=== PATIENT | female | born 1985 | race Caucasian/White ===

== ENCOUNTER 2016-06-09 11:44 | Emergency (ER) | payer MEDICAID ==
--- NOTE | 2016-06-09 12:36 | EDPRACDOC ---
- General Information Stated Complaint: COUGH/CONGESTION Time Seen by Provider: 06/09/16 12:12 Information Source: Patient Home Medications: Home Medications Azithromycin [Zithromax] 0 mg PO DAILY #6 tablet 06/09/16 Fluticasone Propionate [Flonase Nasal [place]] 2 spray ANTONELLA DAILY #1 each 06/09/16 Prednisone [Sterapred Ds] 10 mg PO DIR #21 pack 06/09/16 Allergies/Adverse Reactions: Allergies Allergy/AdvReac Type Severity Reaction Status Date / Time amoxicillin Allergy Hives* Verified 06/09/16 12:34 Penicillins Allergy Hives* Verified 06/09/16 12:34 - History of Present Illness Symptoms Started: 2 WKS HPI: PT C/O COUGH CONGESTION NASAL CONGESTION FOR 2 WKS. Symptoms: Reports: Cough, Nasal Symptoms Recent Medications: Reports: None Relevant History Of: Reports: None Shortness of Breath: Mild Cough Frequency: Intermittent Cough Description: Reports: Non-productive, Congested Rhinorrhea: Reports: Clear Ear Symptoms: Reports: None Associated Signs and Symptoms: Reports: Cough, Nasal Symptoms ED Past Medical History - History Reviewed Yes Nurses notes reviewed and agree except as marked Travel Outside of [place] in the Last 3 Months?: No No Past Medical History: Yes Patient has no past medical history - Social Medical History Smoking Status: Former smoker (QUIT 2-3 WEEKS AGO) ETOH: None Substance Abuse: None Lives With: Other Lives In: Home EDM Review of Systems - Review of Systems ROS Negative Except as Marked: Yes All systems reviewed and were negative except as marked Constitutional: No Symptoms Reported. negative: Fever, Chills, Weakness, Fatigue, Loss of Appetite Eyes: No Symptoms Reported. negative: Redness, Blurred Vision, Double Vision, Discharge, Pain, Light Sensitive, Photophobia Ears: No Symptoms Reported. negative: Pain, Hearing Loss, Drainage, Ear Pulling Throat: No Symptoms Reported. negative: Pain, Swelling Nose: Congestion. negative: Abrasion, Bleeding, Discharge, Deformity, Ecchymosis, Injection, Laceration, Swelling, Tender Mouth: No Symptoms Reported. negative: Pain, Drooling Respiratory: Cough. negative: Barky Cough, Brassy Cough, Hemoptysis, Shortness of Breath, Wheezing Cardiovascular: No Symptoms Reported. negative: Chest Pain, Palpitations, Syncope, Edema, Orthopnea, PND, Skin Mottling, Cyanosis Gastrointestinal: No Symptoms Reported. negative: Pain, Constipation, Nausea, Vomiting, Diarrhea, Melena, Formula Intolerance Genitourinary: No Symptoms Reported. negative: Dysuria, Hematuria, Frequency, Discharge, Bleeding, Testicular Pain, Neurological: No Symptoms Reported. negative: Headache, Dizziness, Seizure, Numbness, Weakness, Speech Difficulty, Gait Difficulty Musculoskeletal: No Symptoms Reported. negative: Neck, Chestwall, Ribs, Back, Shoulder, Arm, Elbow, Forearm, Wrist, Hand, Pelvis, Hip, Femur, Knee, Leg, Ankle , Foot Integumentary: No Symptoms Reported. negative: Itching, Rash, Bruising, Wound Allergic/Immunologic: No Symptoms Reported. negative: Hives, Itching Hematologic: No Symptoms Reported. negative: Lymphadenopathy, Easy Bruising, Easy Bleeding Endocrine: No Symptoms Reported. negative: Weight Gain, Weight Loss Psychiatric: No Symptoms Reported. negative: Anxiety, Depression, Hallucinations, Insomnia, Suicidal - Physical Exam Constitutional: No apparent distress, Alert (Awake) Oriented to: Time, Person, Place Last recorded Vital Signs: Oxygen Pulse Oxygen Saturation O2 Device Oxygen Flow Rate Fraction of Inspired Oxygen ( FIO2) - HEENT Head: Normal ( normocephalic) Eye Exam: Normal (PERRL, EOMI, Sclera white) Oropharynx: Normal (Pharynx:Moist without exudate,Gums-no swelling) Tympanic Membrane: Normal ENT EAC: Normal TMJ: Normal Nose: Congestion, Discharge Neck: Normal (FROM, trachea at midline) - Respiratory/Cardiovascular Respiratory: Diminished, Other (COARSE BILATERAL) Cardiovascular: Normal (RRR without murmur, gallop or rub) - GI Auscultation: Normal (NABS) Palpation: Normal (Soft,No rebound or guarding, non distended) Tenderness: Non tender Quispe's Sign: Negative - Musculoskeletal Back: Normal (Non-Tender) Extremities: Normal (Normal tone, Pulses 2+ No cyanosis or edema, FROM) - Integumentary Skin: Normal, Warm, Dry Lymphatics: Normal (no adenopathy) - Neurologic Memory Impaired: Normal Motor Function: Normal (Normal tone, Pulses 2+ No cyanosis or edema, FROM) Cranial Nerve: Normal (CN II-X11 intact sensation, strength 5/5) Cerebellar: Normal Mood Description: Normal Perception: Normal - Differential Diagnosis Allergic Rhinitis, Bronchitis, Sinusitis Decision Time to Discharge: 12:37 - Departure Disposition: Home Condition: Stable Final Diagnosis: Acute bronchitis, Acute sinusitis Instructions: Acute Bronchitis (ED), Sinusitis (ED) Education/Counseling Given To: Patient Education/Counseling Given Regarding: Diagnosis, Treatment, Prognosis, Follow Up Referrals: None,No Provider [Primary Care Provider] - One Week Prescriptions: Azithromycin [Zithromax] 0 mg PO DAILY #6 tablet Fluticasone Propionate [Flonase Nasal [place]] 2 spray ANTONELLA DAILY #1 each Prednisone [Sterapred Ds] 10 mg PO DIR #21 pack Additional Instructions: INCREASE PO FLUIDS. RETURN FOR WORSE OR DIFFERENT SYMPTOMS.
[2016-06-09 12:37] VITALS: BP 137/69; PULSE 89; TEMP 98.4; BMI 27.8
[2016-06-09] MEDS ORDERED: ALBUTEROL 6.7 GM MDI INH ONE (12:37)
== END 2016-06-09 12:46 | disposition home or self-care (01) ==
LOC: EDMC 11:44
DX: J20.9 Acute bronchitis, unspecified (principal); J01.90 Acute sinusitis, unspecified
CPT/HCPCS: 94640; 99283; J3490